=== PATIENT | female | born 1995 | race Caucasian/White ===

== ENCOUNTER 2018-11-21 10:52 | Emergency (ER) | payer OTHER ==
--- NOTE | 2018-11-21 11:06 | UC ---
Skin Complaint HPI - HPI Summary HPI Summary: 23 yo female presents with bug bites to left wrist. She tells me that on 11/18 she woke up and noticed some small itchy bumps to her left wrist. Since that time they have not changed and are still itchy. She has scratched some of them and they bled a little. She is unsure if something bit her, but a family member said that have seen some large black ants around the house lately. She denies fever, chills, pain, drainage, swelling, or redness. - History of Current Complaint Time Seen by Provider: 11/21/18 11:06 Stated Complaint: SPIDER BITES Hx Obtained From: Patient Hx Last Menstrual Period: 02/03/14 Onset/Duration: Sudden Onset Current Severity: None - Allergy/Home Medications Allergies/Adverse Reactions: Allergies Allergy/AdvReac Type Severity Reaction Status Date / Time nickel Allergy Rash Verified 11/21/18 11:11 PMH/Surg Hx/FS Hx/Imm Hx - Additional Past Medical History Additional PMH: None - Surgical History Surgical History: Yes Surgery Procedure, Year, and Place: T AND A - Family History Known Family History: Positive: None - Social History Lives: With Family Alcohol Use: None Substance Use Type: None Smoking Status (MU): Never Smoked Tobacco - Immunization History Vaccination Up to Date: Yes Review of Systems All Other Systems Reviewed And Are Negative: Yes Constitutional: Positive: Negative Skin: Positive: Other - Bug bites left wrist Respiratory: Positive: Negative Cardiovascular: Positive: Negative Motor: Positive: Negative Neurovascular: Positive: Negative Musculoskeletal: Positive: Negative Neurological: Positive: Negative Psychological: Positive: Negative Physical Exam - Summary Physical Exam Summary: GENERAL: NAD. WDWN. No pain distress. SKIN: Left wrist: Scattered small 1-2mm flesh colored papules with scant excoriations. NTTP. No erythema, edema, streaking, bleeding, or discharge. CHEST: No accessory muscle use. Breathing comfortably and in no distress. CV: Pulses intact. Cap refill <2seconds NEURO: Alert. PSYCH: Age appropriate behavior. Triage Information Reviewed: Yes Vital Signs: Vital Signs: Temp Pulse Resp BP Pulse Ox 98.0 F 68 16 128/81 100 11/21/18 11:06 11/21/18 11:06 11/21/18 11:06 11/21/18 11:06 11/21/18 11:06 Vital Signs Reviewed: Yes Course/Dx - Course Course Of Treatment: Suspect bug bites. Will rx for steroid cream for the itch and have her monitor the area and return if she develops fever, redness, swelling, or drainage. - Diagnoses Provider Diagnosis: Bug bites Discharge - Sign-Out/Discharge Documenting (check all that apply): Patient Departure All imaging exams completed and their final reports reviewed: No Studies - Discharge Plan Condition: Stable Disposition: HOME Prescriptions: Triamcinolone 0.1% CREAM (NF) [Kenalog 0.1% Cream (NF)] 1 applic TOPICAL BID #1 tube Patient Education Materials: Insect Bite or Sting (ED) Referrals: Travis Castano [Medical Doctor] - Additional Instructions: If you develop a fever, shortness of breath, chest pain, new or worsening symptoms - please call your PCP or go to the ED immediately. - Billing Disposition and Condition Condition: STABLE Disposition: Home - Attestation Statements Provider Attestation: I am administratively signing this document. I was available for consultation for this patient. I did not evaluate the patient, did not have a doctor/patient relationship with the patient, or participate in any medical decision making or disposition decisions unless I am specifically named in the chart as having consulted on the patient. If I have consulted on the patient, please see my own ED note on the patient encounter. Agueda Altamirano MD
[2018-11-21 11:11] VITALS: BP 128/81
== END 2018-11-21 11:29 | disposition home or self-care (01) ==
LOC: UCEAST 10:52
DX: S60.862A Insect bite (nonvenomous) of left wrist, initial encounter (principal); W57.XXXA Bitten or stung by nonvenomous insect and other nonvenomous arthropods, initial encounter; Y92.9 Unspecified place or not applicable
CPT/HCPCS: 99201; G0463

== ENCOUNTER 2019-06-03 12:06 | Emergency (ER) | payer OTHER ==
[2019-06-03 12:55] VITALS: BP 131/78
--- NOTE | 2019-06-03 12:58 | UC ---
Complaint Female HPI - HPI Summary HPI Summary: 24 yo female presents with vaginal discharge. She tells me that for the last 2 weeks she has had white malodorous vaginal discharge with urinary burning and frequency. She had sexual intercourse around this time with a new male partner and is concerned for STDs, however her vaginal discharge began prior to this sexual encounter. Denies fever, chills, abdominal pain, n/v/d/c, flank pain, or vaginal bleeding. - History Of Current Complaint Chief Complaint: UCGeneralIllness Stated Complaint: PERSONAL Time Seen by Provider: 06/03/19 12:57 Hx Obtained From: Patient Hx Last Menstrual Period: IUD Onset/Duration: Gradual Onset Timing: Constant Severity Initially: Mild Severity Currently: Mild Pain Intensity: 3 Pain Scale Used: 0-10 Numeric - Allergies/Home Medications Allergies/Adverse Reactions: Allergies Allergy/AdvReac Type Severity Reaction Status Date / Time nickel Allergy Rash Verified 06/03/19 12:49 Home Medications: Home Medications Levonorgestrel (Iud) [Liletta IUD] 1 implant ONCE 06/03/19 [History Confirmed ] PMH/Surg Hx/FS Hx/Imm Hx - Additional Past Medical History Additional PMH: None - Surgical History Surgical History: Yes Surgery Procedure, Year, and Place: T AND A. RIGHT ankle- 2 screws and plate - Family History Known Family History: Positive: None - Social History Lives: With Family Alcohol Use: Occasionally Substance Use Type: None Substance Use Comment - Amount & Last Used: every other day Smoking Status (MU): Heavy Every Day Tobacco Smoker Type: Cigarettes Amount Used/How Often: 1 PPD Length of Time of Smoking/Using Tobacco: 4.5 years - Immunization History Vaccination Up to Date: Yes Review of Systems All Other Systems Reviewed And Are Negative: No Constitutional: Positive: Negative Skin: Positive: Negative Respiratory: Positive: Negative Cardiovascular: Positive: Negative Gastrointestinal: Positive: Negative Genitourinary: Positive: Frequency, Urgency, Vaginal/Penile Discharge Neurological/Mental Status: Positive: Negative Psychological: Positive: Negative Physical Exam - Summary Physical Exam Summary: GENERAL: NAD. WDWN. No pain distress. SKIN: No rashes, sores, lesions, or open wounds. NECK: Supple. Nontender. No lymphadenopathy. CHEST: CTAB. No r/r/w. No accessory muscle use. Breathing comfortably and in no distress. CV: RRR. Pulses intact. Cap refill <2seconds ABDOMEN: Soft. NTTP. No distention or guarding. No CVA tenderness. Bowel sounds present NEURO: Alert. PSYCH: Age appropriate behavior. Triage Information Reviewed: Yes Vital Signs: Initial Vital Signs Temp 97.7 F 06/03/19 12:50 Pulse 85 06/03/19 12:50 Resp 16 06/03/19 12:50 BP 131/78 06/03/19 12:50 Pulse Ox 100 06/03/19 12:50 Laboratory Tests 06/03/19 13:10 POC Urine Color Yellow POC Urine Clarity Slightly cloudy POC Urine pH 7.0 POC Ur Specif [place] 1.015 POC Urine Protein Negative POC Ur Glucose (UA) Negative POC Urine Ketones Negative POC Urine Blood Negative POC Urine Nitrite Negative POC Urine Bilirubin Negative POC Urine Urobilinogen 0.2 POC U Leukocyte Esteras 1+ A Vital Signs Reviewed: Yes Pelvic Exam: Positive: External Exam Normal, Discharge - thin white, Other - Exam assited by Tierney RN. Negative: Blood, Lesions, Mass, Tender w/ Cervical Motion, Tender Adnexa, Tender Uterus, Ulcers Complaint Female Dx - Course Course Of Treatment: UA as above - possible UTI, will treat with keflex. Pelvic exam seems most consistent with BV, therefore will treat with flagyl at this time. Affirm culture obtained and urine sent for GCC - Differential Dx/Diagnosis Provider Diagnosis: Bacterial vaginitis Discharge ED - Sign-Out/Discharge Documenting (check all that apply): Patient Departure All imaging exams completed and their final reports reviewed: No Studies - Discharge Plan Condition: Stable Disposition: HOME Prescriptions: Cephalexin CAP* [Keflex CAP*] 500 mg PO BID #10 cap metroNIDAZOLE [Flagyl 500 MG TAB] 500 mg PO BID #14 tab Patient Education Materials: Bacterial Vaginosis (ED), Urinary Tract Infection in Women (ED) Referrals: Karen Steven MD [Primary Care Provider] - Additional Instructions: If you develop a fever, shortness of breath, chest pain, new or worsening symptoms - please call your PCP or go to the ED immediately. Your exam today seemed most consisted with bacterial vaginosis for which I have prescribed Flagyl. We should have results of testing tomorrow and if we need to change your treatment, we will call you - Billing Disposition and Condition Condition: STABLE Disposition: Home
[2019-06-04 13:06] LABS: Chlamydia trachomatis NAA Negative (Negative); Neisseria gonorrhoeae (GC) NAA Negative (Negative)
--- NOTE | 2019-06-05 10:01 | UC ---
- Progress Note Progress Note: Results came back positive for Gardnerella which you are being treated for with the metronidazole. Urine culture was not significantly positive and would discontinue Keflex If symptoms persist or worsen despite metronidazole recommend follow up with your PCP or return to urgent care Gonorrhea and Chlamydia were both negative Course/Dx - Diagnoses Provider Diagnoses: Bacterial vaginitis Discharge ED - Sign-Out/Discharge Documenting (check all that apply): Post-Discharge Follow Up All imaging exams completed and their final reports reviewed: No Studies - Discharge Plan Condition: Stable Disposition: HOME Prescriptions: Cephalexin CAP* [Keflex CAP*] 500 mg PO BID #10 cap metroNIDAZOLE [Flagyl 500 MG TAB] 500 mg PO BID #14 tab Patient Education Materials: Bacterial Vaginosis (ED), Urinary Tract Infection in Women (ED) Referrals: Karen Steven MD [Primary Care Provider] - Additional Instructions: If you develop a fever, shortness of breath, chest pain, new or worsening symptoms - please call your PCP or go to the ED immediately. Your exam today seemed most consisted with bacterial vaginosis for which I have prescribed Flagyl. We should have results of testing tomorrow and if we need to change your treatment, we will call you - Billing Disposition and Condition Condition: STABLE Disposition: Home
== END 2019-06-03 13:42 | disposition home or self-care (01) ==
LOC: UCCORT 12:06
DX: N76.0 Acute vaginitis (principal); R35.0 Frequency of micturition; F17.210 Nicotine dependence, cigarettes, uncomplicated; Z91.09 Other allergy status, other than to drugs and biological substances
CPT/HCPCS: 81003; 87086; 87480; 87491; 87510; 87591; 87660; 99212; G0463